=== PATIENT | female | born 1980 | race Caucasian/White ===

== ENCOUNTER 2019-05-09 02:15 | Emergency (ER) | payer SELFPAY ==
[~2019-05-09] VITALS: Ht 167 cm; Wt 88.2 kg
[2019-05-09 02:21] VITALS: BP 124/77
[2019-05-09] MEDS ORDERED: KETOROLAC 30 MG/ML VIAL IM ONE (02:45)
[2019-05-09] MEDS ORDERED: PROMETHAZINE INJ 25 MG/ML (PHENERGAN) AMP IM ONE (02:45)
--- NOTE | 2019-05-09 03:16 | ED Headache ---
General Chief Complaint: Head/Cervical Problems Stated Complaint: MIGRAINE Nursing Triage Note: C/O MIGRAINESTATESN HAS TAKEN OTC MEDS WITH NO RELIEF. RECETLY RELOCATED FROM [place] NO LOCAL DOCTOR Nursing Sepsis Screen: No Definite Risk Source: patient Exam Limitations: no limitations History of Present Illness Date Seen by Provider: May 09, 2019 Time Seen by Provider: 02:29 Initial Comments This 38-year-old woman presents to the emergency room with complaints of migraine headache. She has had headache for 2 days and states this is now d eveloping into a migraine with more intense pain on the left side of the head. She has not yet developed nausea and vomiting. She takes gabapentin and verapamil for prophylaxis. She also took Aleve 3-1/2 hours ago. She has a doctor in [place] who prescribes her a few Dilaudid each month to take for migraine exacerbations. She is out of those tablets. Allergies and Home Medications Allergies Coded Allergies: No Known Drug Allergies (Unverified , 05/09/19) Patient Home Medication List Home Medication List Reviewed: Yes Review of Systems Review of Systems Constitutional: no symptoms reported Eyes: No Symptoms Reported Ears, Nose, Mouth, Throat: no symptoms reported Respiratory: no symptoms reported Cardiovascular: no symptoms reported Gastrointestinal: no symptoms reported Genitourinary: no symptoms reported : No Musculoskeletal: no symptoms reported Skin: no symptoms reported Psychiatric/Neurological: See HPI Past Hsttjsq-Rcvprn-Xambss Hx Past Med/Social Hx: Reviewed Nursing Past Med/Soc Hx Patient Social History Alcohol Use: Denies Use Recreational Drug Use: No Smoking Status: Current Everyday Smoker Recent Foreign Travel: No Contact w/Someone Who Travel: No Recent Infectious Disease Expo: No Recent Hopitalizations: No Physical Abuse: No Sexual Abuse: No Mistreated: No Fear: No Seasonal Allergies Seasonal Allergies: No Past Medical History Surgeries: Yes Appendectomy, Gallbladder, Tonsillectomy, Tubal Ligation Respiratory: No Cardiac: No Neurological: Yes Headaches /Migraines, Multiple Sclerosis, Neuropathy 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 oz. kg; 31.00 BMI Method: General Appearance: WD/WN, no apparent distress HEENT: PERRL/EOMI, normal ENT inspection, TMs normal, pharynx normal Neck: normal inspection Cardiovascular: regular rate, rhythm, no edema, no murmur Respiratory: lungs clear, normal breath sounds, no respiratory distress, no accessory muscle use Gastrointestinal: normal bowel sounds, non tender, soft Extremities: normal inspection, no pedal edema Crainal Nerves: normal hearing, normal speech, PERRL Coordination/Gait: normal gait Motor/Sensory: no motor deficit, no sensory deficit Skin: normal color, warm/dry Progress/Results/Core Measures Results/Orders My Orders Orders - NIKO MUNIZ MD Promethazine Injection (Phenergan Injec (05/09/19 02:45) Ketorolac Injection (Toradol Injection) (05/09/19 02:45) Medications Given in ED Current Medications Medications Dose Ordered Sig/Stefany Route Start Time Stop Time Status Last Admin Dose Admin Ketorolac Tromethamine 30 mg ONCE ONCE IM 05/09/19 02:45 05/09/19 02:46 DC 05/09/19 02:49 30 MG Promethazine HCl 25 mg ONCE ONCE IM 05/09/19 02:45 05/09/19 02:46 DC 05/09/19 02:47 25 MG Vital Signs/I&O 05/09/19 02:21 Temp 36.7 Pulse 69 Resp 20 B/P (MAP) 124/77 (93) Pulse Ox 95 Blood Pressure Mean: 93 Progress Progress Note : Progress Note Mistreated with Toradol and Phenergan with some improvement. She was discharged home to continue recovery there. Departure Impression Primary Impression: Migraine Qualified Codes: G43.909 - Migraine, unspecified, not intractable, without status migrainosus Disposition: 01 HOME, SELF-CARE Condition: Improved Departure-Patient Inst. Decision time for Depature: 03:14 Referrals: NO,LOCAL PHYSICIAN (PCP) Primary Care Physician Patient Instructions: Migraine Headache (DC) Add. Discharge Instructions: Drink plenty of clear liquids to stay well-hydrated. Return home and rest in a quiet, calm, dark environment for the rest of the morning. If you have difficulty sleeping or still have pain you may add Benadryl (diphenhydramine) up to 50 mg every 4 hours as needed. You may take Aleve or ibuprofen for primary pain management. Add Tylenol (acetaminophen) for pain not controlled by NSAIDs such as Aleve or ibuprofen. Continue to take your preventive medications. Follow-up with your established physicians for further instructions. Use the Zofran (ondansetron) you have at home for treatment of nausea and vomiting. Return to care if you have worsening symptoms despite following these measures. All discharge instructions reviewed with patient and/or family. Voiced understanding. Work/School Note: Work Release Form Date Seen in the Emergency Department: May 09, 2019 Return to Work: May 10, 2019 Restrictions: No Restrictions NIKO MUNIZ MD May 09, 2019 03:16
== END 2019-05-09 03:25 | disposition home or self-care (01) ==
LOC: ER 02:19
DX: G43.909 Migraine, unspecified, not intractable, without status migrainosus (principal); F17.200 Nicotine dependence, unspecified, uncomplicated; Z98.51 Tubal ligation status; Z90.49 Acquired absence of other specified parts of digestive tract
CPT/HCPCS: 99284